=== PATIENT | female | born 1950 | race Caucasian/White ===

== ENCOUNTER → 2016-10-16 | Outpatient (CLI) | payer OTHER | LOC: FIMAGING 13:32 | DX: Z12.31 Encounter for screening mammogram for malignant neoplasm of breast (principal); Z80.3 Family history of malignant neoplasm of breast | CPT/HCPCS: G0202 ==

== ENCOUNTER 2017-08-12 16:24 | Observation (INO) | payer OTHER ==
--- NOTE | 2017-08-12 16:43 | CPEKG ---
Heart Rate: 92 RR Interval: 652 P-R Interval: 168 QRSD Interval: 84 QT Interval: 368 QTC Interval: 456 P [place]: 66 QRS [place]: 258 T Wave [place]: 70 EKG Severity - ABNORMAL ECG - EKG Impression: SINUS RHYTHM EKG Impression: LAD, CONSIDER LEFT ANTERIOR FASCICULAR BLOCK EKG Impression: LOW VOLTAGE IN FRONTAL LEADS EKG Impression: PROBABLE RIGHT VENTRICULAR HYPERTROPHY Electronically Signed By: Kassi Go 12-Aug-2017 20:00:11
[2017-08-12 17:04] LABS: PLATELET COUNT 280 10^3/uL (150-400)
[2017-08-12] MEDS ORDERED: NS 1,000 ML IV ONE (18:28)
[2017-08-12] MEDS ORDERED: ACETAMINOPHEN 325 MG TAB PO PRN (19:20)
[2017-08-12] MEDS ORDERED: ONDANSETRON 4 MG/2 ML VIAL IVP PRN (19:20)
[2017-08-12] MEDS ORDERED: ONDANSETRON DISINTEGRATING 4 MG TAB PO PRN (19:20)
[2017-08-12] MEDS ORDERED: QUEtiapine FUMARATE 50 MG TAB PO PRN (19:21)
--- NOTE | 2017-08-12 19:38 | EDPHY ---
H & P Stated Complaint: intermittant feeling of rapid heartbeat, irreg - Personal History Current Tetanus Diphtheria and Acellular Pertussis (TDAP): Yes - Medical/Surgical History Hx Asthma: No Hx Chronic Respiratory Disease: No Hx Diabetes: No Hx Cardiac Disease: No Hx Renal Disease: No Hx Cirrhosis: No Hx Alcoholism: No Hx HIV/AIDS: No Hx Splenectomy or Spleen Trauma: No Other PMH: T&A, vasile deidra, spinal fusion, umbilical hernia repair, partial hysterectomy - Social History Smoking Status: Never smoked HPI/ROS: Chief complaint: Palpitations, dizziness History of present illness: This is a 66-year-old female who presents to the emergency department for evaluation of palpitations. She reports the onset of symptoms over the last 2 days. She reports intermittent symptoms. She reports feeling her heart pounding and racing. It has felt irregular. When she has the symptoms she feels lightheaded like she is going to pass out although she has not passed out. She denies any precipitating factors. She denies any alleviating or aggravating factors. She denies other associated signs or symptoms including no fevers or cold symptoms, no chest pain, no shortness of breath, no pain or swelling in the legs. Review of systems: A 10 point review of systems was obtained and other than described above was negative (Lloyd Starkey) - Physical Exam Exam: General Appearance: Alert, nontoxic. Eyes: Pupils equal and round no pallor or injection. ENT, Mouth: Mucous membranes moist. Respiratory: There are no retractions, lungs are clear to auscultation. Cardiovascular: Regular rate and rhythm. Gastrointestinal: Abdomen is soft and non tender, no masses, bowel sounds normal. Neurological: Alert and oriented x4. Strength and sensation intact and symmetrical. Skin: Warm and dry, no rashes. Musculoskeletal: Neck is supple non tender. Extremities are symmetrical, full range of motion. Psychiatric: Patient is oriented X 3, there is no agitation. (Lloyd Starkey) Constitutional: Initial Vital Signs Temperature (C) 36.8 C 08/12/17 16:26 Heart Rate 88 08/12/17 16:26 Respiratory Rate 20 08/12/17 16:26 Blood Pressure 150/96 H 08/12/17 16:26 O2 Sat (%) 97 08/12/17 16:26 O2 Delivery Mode Room Air Allergies/Adverse Reactions: lactose [Lactose] Allergy (Verified 07/17/10 12:12) GI latex [Latex] Allergy (Verified 07/17/10 12:12) Rash Home Medications: Medication Instructions Recorded QUEtiapine FUMARATE [Seroquel 50 50 mg PO HS PRN 01/06/ mg (*)] Herbals/Supplements -Info Only 1 ea PO DAILY 08/12/17 Levothyroxine [Synthroid 88 mcg 88 mcg PO DAILY06 08/12/17 (*)] Medical Decision Making - Diagnostics Imaging: I viewed and interpreted images myself - Diagnostics Imaging Results: Imaging Impressions Chest X-Ray 08/12/17 16:50 Impression: 1. Hyperexpanded lungs with underlying COPD suspected. 2. Scoliosis and accentuation of the anterior kyphosis mid to lower thoracic spine. ED Course/Re-evaluation: Patient discussed with my secondary supervising physician Dr. Kassi Go. Patient presents to the emergency department with heart pounding and near- syncope. I am concerned for a heart arrhythmia. She is admitted for further evaluation and care. The plan has been discussed with the patient who voiced understanding and agreement with it. (Lloyd Starkey) Differential Diagnosis: Included but not limited to cardiac dysrhythmia, ACS, electrolyte disturbances, anemia, infections (Lloyd Starkey) Other Provider: The patient was evaluated and managed by the Physician Family Psychologist. I discussed the patient's presentation and course with the midlevel provider with them and agree with the evaluation. My co-signature indicates that I have reviewed this chart and I agree with the findings and plan of care as documented. I am the secondary supervising physician. (Kassi Go) - Data Points Laboratory Results: Laboratory Results 08/12/17 16:55 08/12/17 16:55 08/12/17 08/12/17 08/12/17 16:55 16:55 16:55 WBC 5.79 10^3/uL 10^3/uL (3.80-9.50) RBC 4.91 10^6/uL 10^6/uL (4.18-5.33) Hgb 14.9 g/dL g/dL (12.6-16.3) Hct 44.6 % % (38.0-47.0) MCV 90.8 fL fL (81.5-99.8) MCH 30.3 pg pg (27.9-34.1) MCHC 33.4 g/dL g/dL (32.4-36.7) RDW 13.0 % % (11.5-15.2) Plt Count 280 10^3/uL 10^3/uL (150-400) MPV 10.1 fL fL (8.7-11.7) Neut % (Auto) 60.8 % % (39.3-74.2) Lymph % (Auto) 30.2 % % (15.0-45.0) [place] % (Auto) 7.3 % % (4.5-13.0) Eos % (Auto) 0.7 % % (0.6-7.6) Baso % (Auto) 0.7 % % (0.3-1.7) Nucleat RBC Rel Count 0.0 % % (0.0-0.2) Absolute Neuts (auto) 3.52 10^3/uL 10^3/uL (1.70-6.50) Absolute Lymphs (auto) 1.75 10^3/uL 10^3/uL (1.00-3.00) Absolute Monos (auto) 0.42 10^3/uL 10^3/uL (0.30-0.80) Absolute Eos (auto) 0.04 10^3/uL 10^3/uL (0.03-0.40) Absolute Basos (auto) 0.04 10^3/uL 10^3/uL (0.02-0.10) Absolute Nucleated RBC 0.00 10^3/uL 10^3/uL (0-0.01) Immature Gran % 0.3 % % (0.0-1.1) Immature Gran # 0.02 10^3/uL 10^3/uL (0.00-0.10) Sodium 144 mEq/L mEq/L (135-145) Potassium 4.2 mEq/L mEq/L (3.5-5.2) Chloride 104 mEq/L mEq/L (97-110) Carbon Dioxide 24 mEq/l mEq/l (22-31) Anion Gap 16 mEq/L mEq/L (8-16) BUN 26 mg/dL H mg/dL (7-23) Creatinine 1.0 mg/dL mg/dL (0.6-1.0) Estimated GFR 55 Glucose 128 mg/dL H mg/dL (70-100) Calcium 10.3 mg/dL mg/dL (8.5-10.4) Magnesium 2.0 mg/dL mg/dL (1.6-2.3) Troponin I < 0.012 ng/mL ng/mL (0.000-0.034) TSH 4.980 uIU/mL H uIU/mL (0.465-4.680) Medications Given: Discontinued Medications Sodium Chloride (Ns) 1,000 mls @ 0 mls/hr IV EDNOW ONE; Wide Open PRN Reason: Protocol Stop: 08/12/17 18:29 Last Admin: 08/12/17 18:54 Dose: 1,000 mls Departure - Departure Disposition: [facility] Inpatient Acute Clinical Impression: Palpitations Condition: Good
--- NOTE | 2017-08-12 19:48 | GHP ---
[f rep st] HISTORY AND PHYSICAL DATE OF ADMISSION: 08/12/2017 CHIEF COMPLAINT: Near syncope. Palpitations. HISTORY OF PRESENT ILLNESS: This is a 66-year-old female, who has minimal medical problems and was i n her usual state of health until about 2 days ago when she began feeling her heart beat. She has al so had intermittent episodes of high heart rate that she thinks is regular, although her friend who i s a nurse did feel it, and it felt irregular to her. This was associated today with dizziness when s tanding up and near syncope. The high heart rate episodes have been intermittent, although the sensa tion of feeling her heart beating and just feeling uneasy has been there for the last several days. She is not having any fevers or chills. No chest pain. No shortness of breath. This has never happ ened to her before. REVIEW OF SYSTEMS: A 10-point review of systems was obtained and negative. PAST MEDICAL HISTORY: Hypothyroidism and back surgery. MEDICATIONS: Reviewed. SOCIAL HISTORY: No smoking. She is . Pretty active in general. FAMILY HISTORY: Abdominal aortic aneurysm. PHYSICAL EXAMINATION: VITAL SIGNS: Afebrile. Blood pressure is 123/76, heart rate 72, oxygen satur ation 95% on room air. GENERAL: The patient is well developed and in no apparent distress. HEENT: Nonicteric sclerae. Extraocular muscles are intact. Moist mucous membranes. NECK: Supple. No th yromegaly. LUNGS: Good effort. Clear to auscultation bilaterally. CARDIOVASCULAR: Regular rate a nd rhythm. No murmurs or gallops. ABDOMEN: Positive bowel sounds. Soft, nontender, nondistended. No hepatosplenomegaly. EXTREMITIES: No clubbing, cyanosis, or edema. SKIN: Without rash. Warm, intact. NEUROLOGIC: Alert and oriented x3. Moving all 4 extremities equally. PSYCHIATRIC: Normal mood and affect. LABORATORY DATA: CBC is normal. Chemistry is essentially normal. EKG personally reviewed and inter preted and shows normal sinus rhythm with no ischemic changes. Chest x-ray personally reviewed and interpreted. This revealed some hyperexpanded lungs. ASSESSMENT: This is a 66-year-old female, presenting with palpitations, which sound like atrial fibr illation, atrial flutter. PLAN: 1. Heart palpitations. Rule out arrhythmia. The patient be monitored on telemetry. The way she de scribed at least the runs of tachycardia, it does sound more like atrial fibrillation/atrial flutter type. We will check an echocardiogram. TSH is a little bit high, but that would not cause this prob yang. If no arrhythmias are found, we may need to get Holter monitoring for her. /[id number]/MODL
--- NOTE | 2017-08-13 05:41 | CPEKG ---
Heart Rate: 62 RR Interval: 968 P-R Interval: 224 QRSD Interval: 92 QT Interval: 440 QTC Interval: 447 P [place]: 63 QRS [place]: -82 T Wave [place]: 60 EKG Severity - ABNORMAL ECG - EKG Impression: SINUS RHYTHM EKG Impression: FIRST DEGREE AV BLOCK EKG Impression: LEFT ANTERIOR FASCICULAR BLOCK EKG Impression: FIRST DEGREE AVB IS NEW IN COMPARISON TO PRIOR Electronically Signed By: Duran Torrez 16-Aug-2017 10:21:00
[2017-08-13] MEDS ORDERED: LEVOTHYROXINE 88 MCG TAB PO SCH (06:00)
--- NOTE | 2017-08-13 09:52 | ECHO ---
[email or web address] [address] [address] Main: [phone] Fax: Transthoracic Echocardiogram Name: TIMUR DICKERSON MR#: [id number] Study Date: 08/13/2017 Study Time: 08:49 AM Date of : 1950 Age: 66 year(s) Height: 162.6 cm (64 in.) Weight: 54.43 kg (120 lb.) BSA: 1.57 m2 Gender: Female Examination: Echo Indication: Palpatations Image Quality: Contrast: Requested by: Elizabet Barnes BP: 123 mmHg/79 mmHg Heart Rate: Rhythm: Indication: Palpatations Procedure Staff Workers Compensation Attorney: Karen Mccracken Reading Physician: Ke Mcdowell Requesting Provider: Conclusions: Normal size left ventricle. No LV hypertrophy. Normal global systolic LV function. The ejection fraction is estimated to be 65-70 %. No regional wall motion abnormality. Normal diastolic LV function. Normal size right ventricle. The left atrium is normal in size. The mitral valve is normal in appearance and function. Trivial mitral valve regurgitation. The aortic valve is normal in appearance and function. The tricuspid valve is normal in appearance and function. Trivial tricuspid valve regurgitation. Measurements: Chambers Valvular Assessment AV/MV Valvular Assessment TV/PV Normal Normal Normal Name Value Range Name Value Range Name Value Range Ao Thao (2D): 3.3 cm (1.4 cm-2.6 AV meanP mmHg ( - ) cm) MV E Vmax: 0.68 m/s ( - ) IVSd (2D): 0.5 cm (0.6 cm-1.1 MV A Vmax: 0.72 m/s ( - ) cm) MV E/A: 0.94 ( - ) LVDd (2D): 3.8 cm (3.9 cm-5.3 cm) LVDs (2D): 2.1 cm (2.1 cm-4 cm) LVPWd (2D): 0.5 cm ( - ) LVEF (MOD4): 76 % (>=55 %) EF Range: 65-70 % Patient: TIMUR DICKERSON Study Date: 08/13/2017 Page 1 of 2 08:49 AM Continued Measurements: Chambers Valvular Assessment AV/MV Name Value Name Value LADs Lon.7 cm MV E/E' Septal: 12.50 LA Area: 9.4 cm2 MV E/E' Lateral: 9.60 Findings: Left Ventricle: Normal size left ventricle. No LV hypertrophy. Normal global systolic LV function. The ejection fraction is estimated to be 65-70 %. No regional wall motion abnormality. Normal diastolic LV function. Right Ventricle: Normal size right ventricle. Left Atrium: The left atrium is normal in size. Right Atrium: The right atrium is normal in size. Mitral Valve: The mitral valve is normal in appearance and function. Trivial mitral valve regurgitation. Aortic Valve: The aortic valve is normal in appearance and function. Tricuspid Valve: The tricuspid valve is normal in appearance and function. Trivial tricuspid valve regurgitation. Pulmonic Valve: Pulmonary valve not well visualized. Aorta: The aorta is normal. Pericardium: No pericardial effusion. (No Signature Object) Patient: TIMUR DICKERSON Study Date: 08/13/2017 Page 2 of 2 08:49 AM [id number]
--- NOTE | 2017-08-13 10:19 | ASMTCASEMG ---
Living Arrangements What is your living Answers: With Spouse arrangement? Who do you live with? Type Of Residence What kind of residence do Answers: House you live in? Discharge Plan Comments Coordination Status Comments Notes: Pt is a 66 y/o female admitted for near syncope and palpitations. Pt will most likely be independent when medically stable. No therapies ordered at this time. CM available for changes. Plan: Independent Date Signed: 08/13/2017 10:18 AM Electronically Signed By:FAUSTO Gannon
[2017-08-13 11:17] VITALS: BP 95/71; PULSE 66; RESP 12; TEMP 98; O2SAT 93
--- NOTE | 2017-08-13 14:18 | PDDCSUM ---
Discharge Summary Discharge Summary: 66 yo female admitted with palpitations x 2 days. No e/o of afib on telemetry or EKG's. Has not had palpitations since arrival to [facility]. No CP or SOB. No pedal edema. TTE unremarkable, preserved LVEF will set up for Holter monitor on 08/17 d/w cards who has set this up On the days of discharge I offered continued observation on telemetry vs discharge with holter monitor planned. As she was not symptomatic she chose discharge. Exam: NAD AAOX3 RRR CTAB S/NT/ND NO LE EDEMA MEDS: SEE MED REC. NO NEW MEDS WERE STARTED F/U: PER ABOVE TOTAL TIME SPENT ON D/C IS 35 MINS
--- NOTE | 2017-08-14 09:20 | ASDISCHSUM ---
Discharge Information Plan Status:Home with No Needs Medically Cleared to Leave:08/12/2017 Discharge Date:08/13/2017 04:20 PM CM D/C Disposition: ADT D/C Disposition:Home, Routine, Self-Care Projected Discharge Date:08/13/2017 12:00 AM Transportation at D/C: Discharge Delay Reason: Follow-Up Date:08/13/2017 12:00 AM Discharge Slot: Final Diagnosis: Placement Information Patient Contact Information Contact Name:ANGELA Relationship: Address:[address] City:[place] Alternate Phone: [facility]/Zip Code:[place] [address] Email: Financial Information Financial Class: Primary Plan Desc:MEDICARE OUTPATIENT Primary Plan Number:[id number] Secondary Plan Desc:[employer] Secondary Plan Number:[id number] Assessment Information [facility] Initial CM Assessment Living Arrangements What is your living Answers: With Spouse arrangement? Who do you live with? Type Of Residence What kind of residence do Answers: House you live in? Discharge Plan Comments Coordination Status Comments Notes: Pt is a 66 y/o female admitted for near syncope and palpitations. Pt will most likely be independent when medically stable. No therapies ordered at this time. CM available for changes. Plan: Independent Date Signed: 08/13/2017 10:18 AM Electronically Signed By:FAUSTO Gannon Intervention Information
== END 2017-08-13 16:20 | disposition home or self-care (01) ==
LOC: INTOOBSV 18:35 → F2W 08-13 08:05
PROVIDERS: ADMIT Internal Medicine; ATTEND Family Medicine
DX: R00.2 Palpitations (principal); R42 Dizziness and giddiness; I44.4 Left anterior fascicular block; E03.9 Hypothyroidism, unspecified; Z98.1 Arthrodesis status; Z91.040 Latex allergy status
CPT/HCPCS: 71046; 93005; 93306; G0378

== ENCOUNTER → 2017-10-19 | Outpatient (CLI) | payer OTHER | LOC: FIMAGING 10:46 | PROVIDERS: ATTEND Family Medicine | DX: Z12.31 Encounter for screening mammogram for malignant neoplasm of breast (principal); Z80.3 Family history of malignant neoplasm of breast ==

== ENCOUNTER → 2017-11-10 | Outpatient (CLI) | payer OTHER | LOC: FIMAGING 13:29 | PROVIDERS: ATTEND Family Medicine | DX: Z13.820 Encounter for screening for osteoporosis (principal); M81.0 Age-related osteoporosis without current pathological fracture; Z78.0 Asymptomatic menopausal state ==

== ENCOUNTER → 2017-11-17 | Outpatient (CLI) | payer OTHER | LOC: GIMAGING 08:36 | PROVIDERS: ATTEND Family Medicine | DX: M41.9 Scoliosis, unspecified (principal); M43.16 Spondylolisthesis, lumbar region | CPT/HCPCS: 71046-PO ==